=== PATIENT | male | born 1970 | race Two or more races ===

== ENCOUNTER 2023-07-30 14:28 | Inpatient (IN) | payer OTHER ==
[2023-07-30 14:47] VITALS: BMI 40.1
[2023-07-30] MEDS ORDERED: BENZONATATE 200 MG CAPSULE PO PRN (17:00)
[2023-07-30] MEDS ORDERED: hydrOXYzine PAMOATE 25 MG CAPSULE (FP) PO PRN (17:00)
[2023-07-30] MEDS ORDERED: LOPERAMIDE HCL 2 MG CAPSULE PO PRN (17:00)
[2023-07-30] MEDS ORDERED: IBUPROFEN 400 MG TABLET (FP) PO PRN (17:00)
[2023-07-30] MEDS ORDERED: ONDANSETRON *ODT* 4 MG TABLET SL PRN (17:00)
[2023-07-30] MEDS ORDERED: guaiFENesin 600 MG TABLET.ER (FP) PO PRN (17:00)
[2023-07-30] MEDS ORDERED: MAG HYDROX/AL HYDROX/SIMETH 30 ML UNIT-DOSE CUP PO PRN (17:00)
[2023-07-30] MEDS ORDERED: POLYETHYLENE GLYCOL (HEALTHYLAX) 3350 17 GM PACKET PO PRN (17:00)
[2023-07-30] MEDS ORDERED: DICYCLOMINE HCL 10 MG CAPSULE PO PRN (17:00)
[2023-07-30] MEDS ORDERED: BENZOCAINE/MENTHOL (CHLORASEPTIC ) LOZENGE MM PRN (17:00)
[2023-07-30] MEDS ORDERED: ACETAMINOPHEN 325 MG TABLET (FP) PO PRN (17:00)
[2023-07-30] MEDS ORDERED: MAGNESIUM HYDROX 2400MG/30ML ORAL SUSPENSION 30 ML CUP PO PRN (17:00)
[2023-07-30] MEDS ORDERED: NALOXONE HCL (KLOXXADO) 8 MG SPRAY NS PRN (17:00)
[2023-07-30] MEDS ORDERED: NALOXONE HCL 0.4 MG/ML VIAL IM PRN (17:00)
[2023-07-30] MEDS ORDERED: BISMUTH SUBSALICYLATE 524 MG/30 ML PO PRN (17:00)
[2023-07-30] MEDS ORDERED: IBUPROFEN 600 MG TABLET (FP) PO PRN (17:00)
[2023-07-30] MEDS: THIAMINE HCL 100 MG TABLET (FP) PO SCH (22:19)
[2023-07-30] MEDS: MELATONIN 5 MG TABLETS PO SCH (22:19)
[2023-07-30] MEDS: METHOCARBAMOL 500 MG TABLET PO PRN (22:19)
[2023-07-30] MEDS: diazePAM 5 MG TABLET PO SCH (22:20)
[2023-07-31] MEDS: PRENATAL VITAMINS W/ FOLIC ACID TABLET (FP) PO SCH (10:17)
[2023-07-31 10:32] LABS: HEMATOCRIT 41.2 % (35.4-49); HEMOGLOBIN 13.7 GM/dL (11.7-16.9); MCH 30.6 pg (25.7-33.7); MCHC 33.3 g/dl (32.0-35.9); MEAN CELL VOLUME 91.7 fl (80-96); MEAN PLT VOLUME 12.6 fl (7.5-11.1); PLATELET COUNT 88 10^3/uL (134-434); RBC 4.49 M/mm3 (4.00-5.60); RDW 13.6 % (11.9-15.9); WHITE BLOOD COUNT 5.6 K/mm3 (4.0-10.0)
[2023-07-31 10:35] LABS: CHLORIDE 106 mmol/L (98-107); POTASSIUM 4.4 mmol/L (3.5-5.1); SODIUM 141 mmol/L (136-145)
[2023-07-31 10:42] LABS: CALCIUM 8.8 mg/dL (8.5-10.1)
[2023-07-31 10:43] LABS: ALBUMIN 3.3 g/dl (3.4-5.0); ANION GAP 3 mmol/L (4-13); BLOOD UREA NITROGEN 10.4 mg/dL (7-18); CO2 32 mmol/L (21-32); CREATININE 1.1 mg/dL (0.55-1.3); GLUCOSE,RANDOM 114 mg/dL (74-106); SGOT/AST 41 U/L (15-37)
[2023-07-31 10:44] LABS: TOT PROT 8.1 g/dl (6.4-8.2)
[2023-07-31 10:45] LABS: BILIRUBIN,TOTAL 0.5 mg/dL (0.2-1)
[2023-07-31] MEDS ORDERED: methaDONE HCL 40 MG DISPERSABLE TABLET PO SCH (10:45)
[2023-07-31 10:46] LABS: ALK PHOS 123 U/L (45-117); SGPT/ALT 53 U/L (13-61)
[2023-08-01] MEDS: diazePAM 5 MG TABLET PO SCH (05:36)
[2023-08-02] MEDS: diazePAM 5 MG TABLET PO SCH (05:43)
[2023-08-02] MEDS: diazePAM 5 MG TABLET PO PRN (14:19)
[2023-08-02 17:19] VITALS: RESP 16
[2023-08-03] MEDS: diazePAM 5 MG TABLET PO ONE (05:40)
[2023-08-03 06:38] VITALS: BP 120/80; PULSE 62; TEMP 97.6
== END 2023-08-03 10:00 | disposition home or self-care (01) | DRG 773 ==
LOC: YASAS 14:28 → Y6N 17:26
PROVIDERS: ADMIT Allergy & Immunology; ATTEND Surgery
PROC: HZ2ZZZZ Detoxification Services for Substance Abuse Treatment (ICD-10-PCS; principal; 2023-07-30)
DX: F13.230 Sedative, hypnotic or anxiolytic dependence with withdrawal, uncomplicated (principal); F11.20 Opioid dependence, uncomplicated; F14.20 Cocaine dependence, uncomplicated; F17.210 Nicotine dependence, cigarettes, uncomplicated; F19.282 Other psychoactive substance dependence with psychoactive substance-induced sleep disorder; F25.9 Schizoaffective disorder, unspecified; F19.24 Other psychoactive substance dependence with psychoactive substance-induced mood disorder; R73.03 Prediabetes; R76.11 Nonspecific reaction to tuberculin skin test without active tuberculosis; Z86.19 Personal history of other infectious and parasitic diseases
CPT/HCPCS: 36415; 80053; 80307; 82962; 85027; 86780; 87635; 87811; 93005; 93010